=== PATIENT | male | born 1980 | race Caucasian/White ===

== ENCOUNTER → 2023-06-03 12:37 | Outpatient (CLI) | payer OTHER, SELFPAY ==
--- NOTE | 2023-06-03 12:40 | DI.US.S_ITS ---
PROCEDURE: US ABDOMEN COMPLETE INDICATIONS: ABDOMINAL PAIN TECHNIQUE: Real-time scanning was performed of the palpable area of concern along the right lateral ribcage, with image documentation. COMPARISON: None. FINDINGS: Palpable area of concern along the right lateral ribcage demonstrates a superficial linear hypoechoic structure which is noncompressible with no internal vascularity. No posterior acoustic shadowing. IMPRESSION: Palpable area of concern along the right lateral ribcage demonstrates a superficial linear hypoechoic structure which is noncompressible with no internal vascularity. Findings are nonspecific and appear benign. Recommend continued clinical follow-up. Dictated by: Jessica Rdz M.D. on 06/03/2023 at 19:28 Approved by: Jessica Rdz M.D. on 06/03/2023 at 19:31
== END ==
LOC: US 12:39
PROVIDERS: Referring Provider Naturopath; Visit Provider Naturopath
DX: R10.9 Unspecified abdominal pain (principal); I87.8 Other specified disorders of veins; R22.9 Localized swelling, mass and lump, unspecified
CPT/HCPCS: 76705